=== PATIENT | female | born 1960 | race Caucasian/White ===

== ENCOUNTER 2020-02-03 22:43 | Inpatient (IN) ==
[2020-02-03 23:41] LABS: Basophils % 0.4 %; Eosinophils % 0.2 %; Hematocrit 40.3 % (35.3-44.9); Hemoglobin 12.6 g/dL (11.5-15.4); Immature Granulocytes % 0.6 % (0-4); Lymphocytes # 0.7 K/mcL (0.6-4.6); Lymphocytes % 12.6 %; Mean Corpuscular HGB Conc 31.3 g/dL (31.6-35.5); Mean Corpuscular Hemoglobin 26.9 pg (28.0-33.3); Mean Corpuscular Volume 85.9 fL (83.0-100.0); Mean Platelet Volume 9.3 fL (9.4-12.4); Monocytes # 0.6 K/mcL (0.0-1.3); Monocytes % 11.8 %; Neutrophils # 3.8 K/mcL (1.6-8.9); Platelet Count 165 K/mcL (140-400); Red Blood Count 4.69 M/mcL (3.82-4.97); Red Cell Distribution Width 14.1 % (11.5-14.5); Segmented Neutrophils % 74.4 %; White Blood Count 5.2 K/mcL (4.3-11.1)
[2020-02-03 23:44] LABS: Prothrombin Time 11.5 Seconds (9.4-12.1)
[2020-02-04 00:02] LABS: BUN/Creatinine Ratio 20 (6-26); Blood Urea Nitrogen 14 mg/dL (8-23); Calcium 8.7 mg/dL (8.6-10.3); Carbon Dioxide 29 mEq/L (23-29); Chloride 98 mEq/L (98-107); Glucose 155 mg/dL (70-105); Osmolality,Calculated 288 (280-300); Potassium 3.7 mEq/L (3.5-5.1); Sodium 137 mEq/L (136-145); Troponin I < 0.03 ng/mL (< 0.04); eGFR For African Americans > 60 (> 60); eGFR For Non-African Americans > 60 (> 60)
[2020-02-04] MEDS ORDERED: Dextrose Gel 15 GM/37.5 ML TUBE PO PRN ×2 (01:24)
[2020-02-04] MEDS ORDERED: D5% in Water 1,000 ML IVC PRN (01:24)
[2020-02-04] MEDS ORDERED: Ondansetron 4 MG/2 ML VIAL IVP PRN (01:24)
[2020-02-04] MEDS ORDERED: Naloxone 0.4 MG/ML INJ IVP PRN (01:24)
[2020-02-04] MEDS ORDERED: *HR* Dextrose 50 % in Water (Vial) 50 ML VIAL IVP PRN (01:24)
[2020-02-04 01:36] LABS: Bilirubin,Urine Negative (Negative); Blood,Urine Small (Negative); Clarity,Urine Clear (Clear); Color,Urine Light-Yellow (Yellow); Glucose,Urine (UA) 200 mg/dL (Normal); Hyaline Casts,Urine Few per lpf (None Seen); Ketones,Urine Trace mg/dL (Negative); Leukocyte Esterase,Urine Negative (Negative); Mucus,Urine Few per lpf (None-Few); Nitrite,Urine Negative (Negative); Protein,Urine 50 mg/dL (Neg-Trace); RBC,Urine 0-3 per hpf (0-3); Specific Gravity,Urine 1.025 (1.010-1.025); Squamous Epithelial Cell,Urine Few per hpf (None-Few); Urobilinogen,Urine Normal (Normal); WBC,Urine 0-3 per hpf (0-3)
[2020-02-04] MEDS ORDERED: Benzonatate 100 MG CAPSULE PO PRN (02:06)
[2020-02-04 02:21] LABS: Adenovirus Not Detected (Not Detect); Coronavirus 229E Not Detected (Not Detect); Coronavirus HKU1 Not Detected (Not Detect); Coronavirus NL63 Not Detected (Not Detect); Coronavirus OC43 Not Detected (Not Detect)
[2020-02-04 02:22] LABS: Bordetella Pertussis Not Detected (Not Detect); Chlamydophila pneumoniae Not Detected (Not Detect); Human Metapneumovirus Not Detected (Not Detect); Human Rhinovirus/Enterovirus Not Detected (Not Detect); Influenza A Subtype 2009 H1 Not Detected (Not Detect); Influenza B Not Detected (Not Detect); Parainfluenza Virus 1 Not Detected (Not Detect); Parainfluenza Virus 2 Not Detected (Not Detect); Parainfluenza Virus 3 Not Detected (Not Detect); Parainfluenza Virus 4 Not Detected (Not Detect); Respiratory Syncytial Virus Not Detected (Not Detect); SARS-CoV-2 DETECTED (Not Detect)
[2020-02-04 02:23] LABS: Mycoplasma pneumoniae Not Detected (Not Detect)
[2020-02-04] MEDS ORDERED: Dexamethasone 4 MG/ML VIAL IVP SCH (02:30)
[2020-02-04] MEDS: *HR* Heparin 5,000 UNIT/ML VIAL SQ SCH ×2 (04:17→17:09)
[2020-02-04] MEDS: Dexamethasone 4 MG/ML VIAL IVP SCH (04:17)
[2020-02-04] MEDS ORDERED: Isovue-370 500 ML BOTTLE IVP ONE (05:00)
[2020-02-04 05:03] LABS: Albumin/Globulin Ratio 1.3 (1.1-2.2); Bilirubin,Indirect 0.3 mg/dL (0.0-1.0); Bilirubin,Total 0.3 mg/dL (0.3-1.0); Globulin 3.2 g/dL (2.4-3.5); Total Protein 7.2 g/dL (6.4-8.9)
[2020-02-04 05:07] LABS: C-Reactive Protein 125 mg/L (Less than 10)
[2020-02-04 05:23] LABS: Ferritin 75 ng/mL (10-120)
[2020-02-04] MEDS: Insulin LISPRO 300 UNITS/3 ML VIAL SQ SCH ×4 (09:10→23:17)
[2020-02-04] MEDS ORDERED: Furosemide 20 MG/2 ML VIAL IVP ONE (10:02)
[2020-02-04] MEDS: Pantoprazole 40 MG VIAL IVP SCH (10:38)
[2020-02-04] MEDS ORDERED: Furosemide 40 MG/4 ML VIAL IVP ONE (17:00)
[2020-02-04] MEDS: Acetaminophen 325 MG TABLET PO PRN (17:09)
[2020-02-05 02:41] LABS: BUN/Creatinine Ratio 29 (6-26); Blood Urea Nitrogen 19 mg/dL (8-23); Calcium 9.1 mg/dL (8.6-10.3); Carbon Dioxide 27 mEq/L (23-29); Chloride 97 mEq/L (98-107); Glucose 225 mg/dL (70-105); Osmolality,Calculated 293 (280-300); Potassium 3.5 mEq/L (3.5-5.1); Sodium 137 mEq/L (136-145); eGFR For African Americans > 60 (> 60); eGFR For Non-African Americans > 60 (> 60)
[2020-02-05] MEDS: Losartan/HCTZ 50-12.5 TABLET PO SCH (06:05)
[2020-02-05] MEDS: *HR* Heparin 5,000 UNIT/ML VIAL SQ SCH ×2 (06:18→17:59)
[2020-02-05] MEDS: amLODIPine 5 MG TABLET PO SCH (08:38)
[2020-02-05] MEDS: atenoloL 50 MG TABLET PO SCH (08:38)
[2020-02-05] MEDS: Pantoprazole 40 MG VIAL IVP SCH (08:40)
[2020-02-05] MEDS: Dexamethasone 4 MG/ML VIAL IVP SCH (08:40)
[2020-02-05] MEDS: Insulin LISPRO 300 UNITS/3 ML VIAL SQ SCH ×4 (08:42→20:51)
[2020-02-05 11:15] LABS: Basophils % 0.2 %; Hematocrit 39.2 % (35.3-44.9); Hemoglobin 11.9 g/dL (11.5-15.4); Immature Granulocytes % 0.3 % (0-4); Lymphocytes # 0.7 K/mcL (0.6-4.6); Lymphocytes % 8.4 %; Mean Corpuscular HGB Conc 30.4 g/dL (31.6-35.5); Mean Corpuscular Hemoglobin 26.7 pg (28.0-33.3); Mean Corpuscular Volume 87.9 fL (83.0-100.0); Mean Platelet Volume 9.5 fL (9.4-12.4); Monocytes # 0.7 K/mcL (0.0-1.3); Monocytes % 8.5 %; Neutrophils # 7.2 K/mcL (1.6-8.9); Platelet Count 180 K/mcL (140-400); Red Blood Count 4.46 M/mcL (3.82-4.97); Segmented Neutrophils % 82.6 %
[2020-02-05 11:16] LABS: White Blood Count 8.7 K/mcL (4.3-11.1)
[2020-02-05] MEDS: Ipratropium 1 PUFF INHALER IH SCH ×2 (16:05→21:45)
[2020-02-05 16:23] LABS: Albumin 3.8 g/dL (3.5-5.7); Albumin/Globulin Ratio 1.1 (1.1-2.2); Bilirubin,Direct 0.1 mg/dL (0.0-0.2); Bilirubin,Indirect 0.3 mg/dL (0.0-1.0); Bilirubin,Total 0.4 mg/dL (0.3-1.0); Globulin 3.5 g/dL (2.4-3.5); Total Protein 7.3 g/dL (6.4-8.9)
[2020-02-05] MEDS ORDERED: Remdesivir 200 MG in 0.9 % Sodium Chloride 210 ML IVPB ONE (18:00)
[2020-02-05] MEDS: Benzonatate 100 MG CAPSULE PO PRN (20:51)
[2020-02-06] MEDS: Acetaminophen 325 MG TABLET PO PRN (02:25)
[2020-02-06] MEDS: Ipratropium 1 PUFF INHALER IH SCH ×4 (03:11→22:04)
[2020-02-06] MEDS ORDERED: Furosemide 40 MG/4 ML VIAL IVP ONE (04:00)
[2020-02-06 04:29] LABS: Hemoglobin 11.9 g/dL (11.5-15.4); Mean Corpuscular HGB Conc 30.5 g/dL (31.6-35.5); Mean Corpuscular Hemoglobin 26.4 pg (28.0-33.3); Mean Corpuscular Volume 86.5 fL (83.0-100.0); Platelet Count 205 K/mcL (140-400); Red Blood Count 4.51 M/mcL (3.82-4.97); Red Cell Distribution Width 14.3 % (11.5-14.5); White Blood Count 12.2 K/mcL (4.3-11.1)
[2020-02-06 04:39] LABS: INR 1.1; Prothrombin Time 12.9 Seconds (9.4-12.1)
[2020-02-06 04:53] LABS: Alanine Aminotransferase 11 Units/L (7-52); Albumin 3.7 g/dL (3.5-5.7); Albumin/Globulin Ratio 1.1 (1.1-2.2); Alkaline Phosphatase 43 Units/L (34-104); Aspartate Amino Transferase 17 Units/L (13-39); BUN/Creatinine Ratio 28 (6-26); Bilirubin,Total 0.4 mg/dL (0.3-1.0); Blood Urea Nitrogen 16 mg/dL (8-23); C-Reactive Protein 166 mg/L (Less than 10); Calcium 8.9 mg/dL (8.6-10.3); Carbon Dioxide 29 mEq/L (23-29); Chloride 96 mEq/L (98-107); Globulin 3.4 g/dL (2.4-3.5); Glucose 207 mg/dL (70-105); Lactate Dehydrogenase 280 Units/L (140-271); Magnesium 1.7 mg/dL (1.6-2.6); Osmolality,Calculated 293 (280-300); Potassium 3.5 mEq/L (3.5-5.1); Sodium 138 mEq/L (136-145); Total Protein 7.1 g/dL (6.4-8.9); eGFR For African Americans > 60 (> 60); eGFR For Non-African Americans > 60 (> 60)
[2020-02-06 05:08] LABS: Ferritin 117 ng/mL (10-120)
[2020-02-06] MEDS ORDERED: *HR* Enoxaparin 40 MG/0.4 ML SYRINGE SQ SCH (06:00)
[2020-02-06] MEDS: atenoloL 50 MG TABLET PO SCH (08:56)
[2020-02-06] MEDS: Losartan/HCTZ 50-12.5 TABLET PO SCH (08:56)
[2020-02-06] MEDS: amLODIPine 5 MG TABLET PO SCH (08:56)
[2020-02-06] MEDS: Dexamethasone 4 MG/ML VIAL IVP SCH (08:56)
[2020-02-06] MEDS: Insulin LISPRO 300 UNITS/3 ML VIAL SQ SCH ×3 (08:57→16:27)
[2020-02-06] MEDS ORDERED: Furosemide 40 MG TABLET PO SCH (09:00)
[2020-02-06] MEDS: Remdesivir 100 MG in 0.9 % Sodium Chloride 230 ML IVPB SCH (17:48)
[2020-02-06] MEDS ORDERED: 0.9 % Sodium Chloride 250 ML ONE (18:51)
[2020-02-06] MEDS: *HR* Enoxaparin 40 MG/0.4 ML SYRINGE SQ SCH (20:03)
[2020-02-07] MEDS: Acetaminophen 325 MG TABLET PO PRN (00:37)
[2020-02-07] MEDS: Ipratropium 1 PUFF INHALER IH SCH ×4 (03:19→22:14)
[2020-02-07 05:52] LABS: Segmented Neutrophils % 83.2 %
[2020-02-07 05:53] LABS: INR 1.1; Prothrombin Time 12.9 Seconds (9.4-12.1)
[2020-02-07 05:54] LABS: Basophils # 0.1 K/mcL (0.0-0.2); Basophils % 0.5 %; Eosinophils % 0.1 %; Hematocrit 40.4 % (35.3-44.9); Hemoglobin 12.3 g/dL (11.5-15.4); Immature Granulocytes % 1.5 % (0-4); Lymphocytes # 0.5 K/mcL (0.6-4.6); Lymphocytes % 5.5 %; Mean Corpuscular HGB Conc 30.4 g/dL (31.6-35.5); Mean Corpuscular Hemoglobin 26.6 pg (28.0-33.3); Mean Corpuscular Volume 87.3 fL (83.0-100.0); Monocytes # 0.9 K/mcL (0.0-1.3); Monocytes % 9.2 %; Neutrophils # 7.9 K/mcL (1.6-8.9); Platelet Count 133 K/mcL (140-400); Red Blood Count 4.63 M/mcL (3.82-4.97); Red Cell Distribution Width 13.7 % (11.5-14.5); White Blood Count 9.5 K/mcL (4.3-11.1)
[2020-02-07 06:08] LABS: Alanine Aminotransferase 13 Units/L (7-52); Albumin 3.5 g/dL (3.5-5.7); Alkaline Phosphatase 43 Units/L (34-104); Aspartate Amino Transferase 14 Units/L (13-39); BUN/Creatinine Ratio 40 (6-26); Bilirubin,Total 0.3 mg/dL (0.3-1.0); Blood Urea Nitrogen 22 mg/dL (8-23); Calcium 9.1 mg/dL (8.6-10.3); Carbon Dioxide 31 mEq/L (23-29); Chloride 94 mEq/L (98-107); Globulin 3.6 g/dL (2.4-3.5); Glucose 304 mg/dL (70-105); Magnesium 2.3 mg/dL (1.6-2.6); Osmolality,Calculated 297 (280-300); Phosphorous 2.8 mg/dL (2.7-4.5); Potassium 3.5 mEq/L (3.5-5.1); Sodium 136 mEq/L (136-145); Total Protein 7.1 g/dL (6.4-8.9); eGFR For African Americans > 60 (> 60); eGFR For Non-African Americans > 60 (> 60)
[2020-02-07] MEDS ORDERED: Furosemide 40 MG/4 ML VIAL IVP SCH (09:00)
[2020-02-07] MEDS: amLODIPine 5 MG TABLET PO SCH (10:02)
[2020-02-07] MEDS: atenoloL 50 MG TABLET PO SCH (10:02)
[2020-02-07] MEDS: Losartan/HCTZ 50-12.5 TABLET PO SCH (10:02)
[2020-02-07] MEDS: Dexamethasone 4 MG/ML VIAL IVP SCH (10:03)
[2020-02-07] MEDS: *HR* Enoxaparin 40 MG/0.4 ML SYRINGE SQ SCH ×2 (10:03→20:13)
[2020-02-07] MEDS: Insulin LISPRO 300 UNITS/3 ML VIAL SQ SCH ×4 (10:04→22:05)
[2020-02-07 11:00] LABS: Estimated Average Glucose 203 mg/dl
[2020-02-07] MEDS ORDERED: Insulin DETEMIR 100 UNIT/ML X5UNITS SQ SCH ×2 (12:56→21:00)
[2020-02-07] MEDS ORDERED: Furosemide 40 MG/4 ML VIAL IVP ONE (18:05)
[2020-02-07] MEDS: Remdesivir 100 MG in 0.9 % Sodium Chloride 230 ML IVPB SCH (18:23)
[2020-02-07] MEDS ORDERED: Insulin DETEMIR 100 UNIT/ML X5UNITS SQ ONE (20:41)
[2020-02-08] MEDS: Ipratropium 1 PUFF INHALER IH SCH ×5 (03:39→23:42)
[2020-02-08] MEDS: Insulin DETEMIR 100 UNIT/ML X5UNITS SQ SCH ×2 (08:28→21:05)
[2020-02-08] MEDS: Dexamethasone 4 MG/ML VIAL IVP SCH (08:28)
[2020-02-08] MEDS: amLODIPine 5 MG TABLET PO SCH (08:30)
[2020-02-08] MEDS: *HR* Enoxaparin 40 MG/0.4 ML SYRINGE SQ SCH ×2 (08:31→21:04)
[2020-02-08] MEDS: Furosemide 40 MG/4 ML VIAL IVP SCH ×2 (08:32→17:46)
[2020-02-08] MEDS: Insulin LISPRO 300 UNITS/3 ML VIAL SQ SCH ×7 (08:37→21:05)
[2020-02-08 10:48] LABS: Hematocrit 42.8 % (35.3-44.9); Hemoglobin 13.5 g/dL (11.5-15.4); Mean Corpuscular HGB Conc 31.5 g/dL (31.6-35.5); Mean Corpuscular Hemoglobin 27.2 pg (28.0-33.3); Mean Corpuscular Volume 86.1 fL (83.0-100.0); Monocytes # 0.6 K/mcL (0.0-1.3); Platelet Count 342 K/mcL (140-400); Red Blood Count 4.97 M/mcL (3.82-4.97); Red Cell Distribution Width 13.4 % (11.5-14.5); White Blood Count 10.3 K/mcL (4.3-11.1)
[2020-02-08 10:50] LABS: INR 1.1; Prothrombin Time 12.7 Seconds (9.4-12.1)
[2020-02-08 11:03] LABS: Alanine Aminotransferase 15 Units/L (7-52); Albumin 3.6 g/dL (3.5-5.7); Alkaline Phosphatase 51 Units/L (34-104); Aspartate Amino Transferase 13 Units/L (13-39); BUN/Creatinine Ratio 49 (6-26); Bilirubin,Total 0.4 mg/dL (0.3-1.0); Blood Urea Nitrogen 35 mg/dL (8-23); C-Reactive Protein 81 mg/L (Less than 10); Calcium 9.5 mg/dL (8.6-10.3); Carbon Dioxide 35 mEq/L (23-29); Chloride 87 mEq/L (98-107); Globulin 3.7 g/dL (2.4-3.5); Glucose 394 mg/dL (70-105); Lactate Dehydrogenase 270 Units/L (140-271); Osmolality,Calculated 300 (280-300); Phosphorous 3.2 mg/dL (2.7-4.5); Potassium 3.2 mEq/L (3.5-5.1); Sodium 133 mEq/L (136-145); Total Protein 7.3 g/dL (6.4-8.9); eGFR For African Americans > 60 (> 60); eGFR For Non-African Americans > 60 (> 60)
[2020-02-08 11:20] LABS: Ferritin 180 ng/mL (10-120)
[2020-02-08 11:53] LABS: Lymphocytes # 1.9 K/mcL (0.6-4.6); Neutrophils # 7.8 K/mcL (1.6-8.9); Platelet Estimate Normal (Normal)
[2020-02-08 11:54] LABS: Reactive Lymphocytes Present (Not Present)
[2020-02-08] MEDS: Remdesivir 100 MG in 0.9 % Sodium Chloride 230 ML IVPB SCH (18:05)
[2020-02-08] MEDS ORDERED: Insulin DETEMIR 100 UNIT/ML X5UNITS SQ SCH (21:00)
[2020-02-08] MEDS ORDERED: traZODone 50 MG TABLET PO PRN (23:50)
[2020-02-09] MEDS: Ipratropium 1 PUFF INHALER IH SCH ×6 (03:26→23:42)
[2020-02-09 08:33] LABS: Basophils # 0.1 K/mcL (0.0-0.2); Basophils % 0.8 %; Eosinophils % 0.4 %; Hematocrit 41.1 % (35.3-44.9); Immature Granulocytes % 4.1 % (0-4); Lymphocytes % 9.5 %; Mean Corpuscular HGB Conc 31.6 g/dL (31.6-35.5); Mean Corpuscular Hemoglobin 27.1 pg (28.0-33.3); Mean Corpuscular Volume 85.6 fL (83.0-100.0); Mean Platelet Volume 9.6 fL (9.4-12.4); Monocytes # 1.1 K/mcL (0.0-1.3); Monocytes % 9.9 %; Nucleated Red Blood Cells 0.4 /100 WBC (0); Platelet Count 301 K/mcL (140-400); Red Cell Distribution Width 13.2 % (11.5-14.5); Segmented Neutrophils % 75.3 %; White Blood Count 10.6 K/mcL (4.3-11.1)
[2020-02-09] MEDS: Insulin LISPRO 300 UNITS/3 ML VIAL SQ SCH ×7 (08:35→20:00)
[2020-02-09] MEDS: Furosemide 40 MG/4 ML VIAL IVP SCH (08:35)
[2020-02-09] MEDS: amLODIPine 5 MG TABLET PO SCH (08:36)
[2020-02-09] MEDS: *HR* Enoxaparin 40 MG/0.4 ML SYRINGE SQ SCH ×2 (08:36→20:00)
[2020-02-09] MEDS: Benzonatate 100 MG CAPSULE PO PRN (08:36)
[2020-02-09] MEDS: Dexamethasone 4 MG/ML VIAL IVP SCH (08:36)
[2020-02-09 08:37] LABS: INR 1.1; Prothrombin Time 12.7 Seconds (9.4-12.1)
[2020-02-09] MEDS: Insulin DETEMIR 100 UNIT/ML X5UNITS SQ SCH ×2 (08:38→19:59)
[2020-02-09 09:18] LABS: Platelet Estimate Normal (Normal)
[2020-02-09 09:51] LABS: Alanine Aminotransferase 13 Units/L (7-52); Albumin 3.3 g/dL (3.5-5.7); Alkaline Phosphatase 50 Units/L (34-104); Aspartate Amino Transferase 14 Units/L (13-39); BUN/Creatinine Ratio 56 (6-26); Bilirubin,Total 0.3 mg/dL (0.3-1.0); Blood Urea Nitrogen 35 mg/dL (8-23); C-Reactive Protein 44 mg/L (Less than 10); Calcium 9.1 mg/dL (8.6-10.3); Carbon Dioxide 28 mEq/L (23-29); Chloride 93 mEq/L (98-107); Ferritin 131 ng/mL (10-120); Globulin 3.2 g/dL (2.4-3.5); Glucose 257 mg/dL (70-105); Lactate Dehydrogenase 325 Units/L (140-271); Magnesium 2.1 mg/dL (1.6-2.6); Osmolality,Calculated 301 (280-300); Phosphorous 3.5 mg/dL (2.7-4.5); Potassium 3.8 mEq/L (3.5-5.1); Sodium 137 mEq/L (136-145); Total Protein 6.5 g/dL (6.4-8.9); eGFR For African Americans > 60 (> 60); eGFR For Non-African Americans > 60 (> 60)
[2020-02-09] MEDS: Furosemide 20 MG/2 ML VIAL IVP SCH (17:33)
[2020-02-09] MEDS: Remdesivir 100 MG in 0.9 % Sodium Chloride 230 ML IVPB SCH (18:31)
[2020-02-10] MEDS: Ipratropium 1 PUFF INHALER IH SCH ×6 (03:21→23:38)
[2020-02-10] MEDS: Benzonatate 100 MG CAPSULE PO PRN (04:20)
[2020-02-10 05:07] LABS: Basophils # 0.1 K/mcL (0.0-0.2); Basophils % 0.7 %; Hematocrit 39.8 % (35.3-44.9); Hemoglobin 12.7 g/dL (11.5-15.4); Immature Granulocytes % 5.3 % (0-4); Lymphocytes # 0.7 K/mcL (0.6-4.6); Lymphocytes % 7.8 %; Mean Corpuscular HGB Conc 31.9 g/dL (31.6-35.5); Mean Corpuscular Hemoglobin 27.4 pg (28.0-33.3); Mean Platelet Volume 8.6 fL (9.4-12.4); Monocytes % 10.3 %; Neutrophils # 7.2 K/mcL (1.6-8.9); Platelet Count 310 K/mcL (140-400); Red Blood Count 4.63 M/mcL (3.82-4.97); Red Cell Distribution Width 13.2 % (11.5-14.5); Segmented Neutrophils % 75.9 %; White Blood Count 9.5 K/mcL (4.3-11.1)
[2020-02-10 05:12] LABS: INR 1.1; Prothrombin Time 12.5 Seconds (9.4-12.1)
[2020-02-10 05:27] LABS: Alanine Aminotransferase 17 Units/L (7-52); Albumin 3.4 g/dL (3.5-5.7); Albumin/Globulin Ratio 1.1 (1.1-2.2); Alkaline Phosphatase 46 Units/L (34-104); Aspartate Amino Transferase 11 Units/L (13-39); BUN/Creatinine Ratio 52 (6-26); Bilirubin,Total 0.3 mg/dL (0.3-1.0); Blood Urea Nitrogen 29 mg/dL (8-23); Calcium 9.4 mg/dL (8.6-10.3); Carbon Dioxide 39 mEq/L (23-29); Chloride 89 mEq/L (98-107); Glucose 295 mg/dL (70-105); Osmolality,Calculated 299 (280-300); Potassium 3.1 mEq/L (3.5-5.1); Sodium 136 mEq/L (136-145); Total Protein 6.4 g/dL (6.4-8.9); eGFR For African Americans > 60 (> 60); eGFR For Non-African Americans > 60 (> 60)
[2020-02-10 05:32] LABS: Magnesium 1.9 mg/dL (1.6-2.6); Phosphorous 2.9 mg/dL (2.7-4.5)
[2020-02-10 06:17] LABS: Platelet Estimate Normal (Normal)
[2020-02-10] MEDS: Dexamethasone 4 MG/ML VIAL IVP SCH (09:23)
[2020-02-10] MEDS: amLODIPine 5 MG TABLET PO SCH (09:24)
[2020-02-10] MEDS: Furosemide 20 MG/2 ML VIAL IVP SCH ×2 (09:24→16:44)
[2020-02-10] MEDS: *HR* Enoxaparin 40 MG/0.4 ML SYRINGE SQ SCH ×2 (09:24→21:47)
[2020-02-10] MEDS: Insulin LISPRO 300 UNITS/3 ML VIAL SQ SCH ×7 (09:25→21:41)
[2020-02-10] MEDS: Insulin DETEMIR 100 UNIT/ML X5UNITS SQ SCH ×2 (09:26→21:47)
[2020-02-10] MEDS: Acetaminophen 325 MG TABLET PO PRN (21:46)
[2020-02-11] MEDS: Ipratropium 1 PUFF INHALER IH SCH ×3 (03:07→11:32)
[2020-02-11] MEDS: Benzonatate 100 MG CAPSULE PO PRN (03:22)
[2020-02-11 04:43] LABS: Basophils # 0.1 K/mcL (0.0-0.2); Basophils % 0.7 %; Hematocrit 40.2 % (35.3-44.9); Hemoglobin 12.9 g/dL (11.5-15.4); Immature Granulocytes % 6.9 % (0-4); Lymphocytes # 0.8 K/mcL (0.6-4.6); Lymphocytes % 7.9 %; Mean Corpuscular HGB Conc 32.1 g/dL (31.6-35.5); Mean Corpuscular Hemoglobin 27.6 pg (28.0-33.3); Mean Corpuscular Volume 85.9 fL (83.0-100.0); Mean Platelet Volume 8.5 fL (9.4-12.4); Monocytes # 0.9 K/mcL (0.0-1.3); Monocytes % 8.5 %; Neutrophils # 7.7 K/mcL (1.6-8.9); Platelet Count 345 K/mcL (140-400); Red Blood Count 4.68 M/mcL (3.82-4.97); Red Cell Distribution Width 13.3 % (11.5-14.5); White Blood Count 10.1 K/mcL (4.3-11.1)
[2020-02-11 04:58] LABS: Prothrombin Time 12.1 Seconds (9.4-12.1)
[2020-02-11 05:07] LABS: Alanine Aminotransferase 19 Units/L (7-52); Albumin 3.4 g/dL (3.5-5.7); Albumin/Globulin Ratio 1.1 (1.1-2.2); Alkaline Phosphatase 44 Units/L (34-104); Aspartate Amino Transferase 13 Units/L (13-39); BUN/Creatinine Ratio 52 (6-26); Bilirubin,Total 0.3 mg/dL (0.3-1.0); Blood Urea Nitrogen 28 mg/dL (8-23); C-Reactive Protein 22 mg/L (Less than 10); Calcium 9.3 mg/dL (8.6-10.3); Carbon Dioxide 37 mEq/L (23-29); Chloride 88 mEq/L (98-107); Glucose 319 mg/dL (70-105); Lactate Dehydrogenase 217 Units/L (140-271); Osmolality,Calculated 294 (280-300); Potassium 3.6 mEq/L (3.5-5.1); Sodium 133 mEq/L (136-145); Total Protein 6.4 g/dL (6.4-8.9); eGFR For African Americans > 60 (> 60); eGFR For Non-African Americans > 60 (> 60)
[2020-02-11 05:20] LABS: Ferritin 132 ng/mL (10-120)
[2020-02-11 05:32] LABS: Platelet Estimate Normal (Normal)
[2020-02-11] MEDS: amLODIPine 5 MG TABLET PO SCH (08:04)
[2020-02-11] MEDS: Insulin LISPRO 300 UNITS/3 ML VIAL SQ SCH ×4 (08:05→12:53)
[2020-02-11] MEDS: Insulin DETEMIR 100 UNIT/ML X5UNITS SQ SCH (08:05)
[2020-02-11] MEDS: *HR* Enoxaparin 40 MG/0.4 ML SYRINGE SQ SCH (08:08)
[2020-02-11] MEDS ORDERED: Furosemide 20 MG TABLET PO SCH (09:00)
[2020-02-11] MEDS ORDERED: Dexamethasone 4 MG/ML VIAL IVP SCH (09:00)
[2020-02-11 09:36] VITALS: BP 166/82
[2020-02-12] MEDS ORDERED: Dexamethasone Sodium Phos/PF 10 MG/ML VIAL IVP SCH (09:00)
== END 2020-02-11 13:52 | disposition home health service (06) | DRG 871 ==
LOC: CDU 22:43 → EMEROOARM 22:43 → SUATTDRO 02-04 01:06 → CDU 02-04 01:32 → 2NENU 02-04 20:59
PROVIDERS: ADMIT Student in an Organized Health Care Education/Training Program; ATTEND Internal Medicine